=== PATIENT | female | born 1980 | race Caucasian/White ===

== ENCOUNTER 2017-08-14 13:21 | Inpatient (IN) | payer BC ==
[2017-08-14 18:58] LABS: ABS Basophils 0.2 10^3/ul (0-0.2); ABS Eosinophils 0.1 10^3/ul (0-0.6); ABS Lymphocytes 1.3 10^3/ul (1.0-4.8); ABS Monocytes 0.5 10^3/ul (0-0.8); ABS Neutrophils 4.5 10^3/ul (1.5-7.7); ABS Nucleated RBC 0 10^3/ul; Eosinophil % 1.2 % (0-6); Hematocrit 45 % (35-47); Hemoglobin 15.1 g/dl (12.0-16.0); Lymphocyte % 20.5 % (25-47); Mean Corpuscular HGB Conc 34 g/dl (31-36); Mean Corpuscular Hemoglobin 30 pg (27-31); Mean Corpuscular Volume 88 fL (80-97); Mean Platelet Volume 8 um3 (7.4-10.4); Nucleated Red Blood Cells % 0; Platelet Count 237 10^3/ul (150-450); Red Cell Distribution Width 13 % (10.5-15); White Blood Count 6.5 10^3/ul (3.5-10.8)
[2017-08-14] MEDS: Sotalol TAB* 80 MG PO SCH (19:48)
[2017-08-14] MEDS ORDERED: Acetaminophen TAB* 325 MG PO PRN (20:59)
[2017-08-14] MEDS ORDERED: Zolpidem TAB* 5 MG PO PRN (21:00)
[2017-08-15 08:55] LABS: EGFR Non-African American 99.7 (>60)
[2017-08-15] MEDS: Sotalol TAB* 80 MG PO SCH ×2 (09:03→20:42)
--- NOTE | 2017-08-15 11:44 | HP ---
HISTORY AND PHYSICAL: DATE OF ADMISSION: 08/14/17 INDICATION FOR ADMISSION: Sotalol initiation, SVT. HISTORY OF PRESENT ILLNESS: The patient is a 37-year-old female with a history of supraventricular t achycardia. The patient has been tried on Multaq and propafenone in the past with poor control. The patient is now being admitted to the hospital for sotalol initiation. The patient denies any chest pain, shortness of breath. No orthopnea or PND. She does have palpitat ions. She denies any lightheadedness, dizziness, or syncope. PAST SURGICAL HISTORY: None. OUTPATIENT MEDICATIONS: 1. Aspirin 81 mg a day. 2. Multaq 400 mg b.i.d. which she stopped 5 days ago. ALLERGIES: No known drug allergies. FAMILY HISTORY: No family history of early coronary artery disease or cardiac arrhythmias. SOCIAL HISTORY: She is . She has 2 children. She denies any tobacco or alcohol use. REVIEW OF SYSTEMS: Negative for fevers and chills. Negative for changes in bowel or bladder. Negat amando for changes in weight. Other 10-point review is unremarkable. PHYSICAL EXAMINATION VITAL SIGNS: Height is 5 feet 5 inches, weight is 127 pounds. Temperature 98.6, heart rate is 77, b lood pressure 96/69, respiratory rate is 16, oxygen saturation 100% on room air. HEENT: Sclerae anicteric. Oropharynx is pink without erythema. NECK: Carotids are 2+ without bruits. JVD is normal. Thyroid is normal. LUNGS: Clear to auscultation. CARDIAC: S1, S2, without any murmurs, rubs, or gallops. EXTREMITIES: Show no edema. She has 2+ pulses throughout. NEUROLOGIC: The patient is awake, alert, and oriented. She moves all 4 extremities equally. LABORATORY DATA: Laboratory studies are within normal limits. Magnesium is 2.3, BUN 10, creatinine 0.66. IMPRESSION AND PLAN: This is a 37-year-old female with a history of supraventricular tachycardia. I n the past, she has had ablation procedures but has failed to have good control of her supraventricul ar tachycardia. The patient is now being admitted for sotalol initiation. The patient will be start ed on 80 mg b.i.d. The patient will get daily EKGs and blood work. [id number]/[facility] #: [id number]
[2017-08-16] MEDS: Sotalol TAB* 80 MG PO SCH ×3 (08:57→20:04)
[2017-08-17 09:03] VITALS: BP 93/48
[2017-08-17 09:05] LABS: EGFR Non-African American 84.7 (>60)
[2017-08-17] MEDS: Sotalol TAB* 80 MG PO SCH (09:17)
--- NOTE | 2017-08-17 12:34 | DS ---
DATE OF ADMISSION: 08/14/2017. DATE OF DISCHARGE: 08/17/2017. DISPOSITION: To home. INDICATION FOR ADMISSION: Sotalol initiation, supraventricular tachycardia. Please see admission history and physical for details of her presentation. SUMMARY OF HOSPITAL COURSE: The patient is a 37-year-old female with a history of supraventricular tachycardia. She had been tried on Propafenone and Multaq for control over her SVT without success. The patient was admitted to the hospital for initiation of Sotalol. The patient was started on Sotalol 80 mg b.i.d. She was observed for five doses. She had no change in her QT interval. She had no significant arrhythmias. The patient tolerated the procedure well. DISPOSITION: The patient will be discharged home. DISCHARGE MEDICATION: Sotalol 80 mg b.i.d. FOLLOW-UP: I will see the patient in follow-up in two to three weeks. [id number]/[facility] #: [id number] MTDD
== END 2017-08-17 09:39 | disposition home or self-care (01) | DRG 201 ==
LOC: MEDTELE 17:18
PROVIDERS: ADMIT Specialist; ATTEND Specialist
DX: I47.1 Supraventricular tachycardia (principal); R42 Dizziness and giddiness
CPT/HCPCS: 36415; 80048; 83735; 85025; 93005; A9270-GY

== ENCOUNTER 2019-05-12 06:31 | Day surgery (SDC) | payer BC ==
[~2019-05-12 06:31] MED LIST: Buffered Lidocaine 1% SYRIN* 1 ML/SYRINGE INTRADERM ONE; Dexamethasone IV* 4 MG/ML 1 ML (4 MG) IV SLOW PU ONE; Famotidine IV* 10 MG/ML 2 ML (20 mg) IV ONE; Lactated Ringers 1000 ML Bag* 1,000 ML IV SCH
[2019-05-12] MEDS ORDERED: ceFAZolin 2 GM PREMIX in ORs 2 GM/50 ML BAG ONE (06:41)
[2019-05-12] MEDS ORDERED: Dexamethasone IV* 4 MG/ML 1 ML (4 MG) ONE (06:41)
[2019-05-12] MEDS ORDERED: Famotidine IV* 10 MG/ML 2 ML (20 mg) ONE (06:41)
[2019-05-12] MEDS ORDERED: Bupivacaine 0.25% SDV* 30 ML ONE (07:10)
[2019-05-12] MEDS ORDERED: fentaNYL* 50 MCG/ML 2 ML VIAL (100 MCG VIAL) ONE (07:13)
[2019-05-12] MEDS ORDERED: Phenylephrine 40 MCG/ML SYRINGE ONE (07:44)
[2019-05-12] MEDS ORDERED: Scopolamine 1.5 mg* PATCH TRANSDERM PRN (08:05)
[2019-05-12] MEDS ORDERED: DiMENhydriNATE IV* 50 MG/ML VIAL IV PUSH PRN (08:05)
[2019-05-12] MEDS ORDERED: Naloxone* 0.4 MG/ML 1 ML VIAL IV PRN (08:05)
[2019-05-12] MEDS ORDERED: fentaNYL* 50 MCG/ML 2 ML VIAL (100 MCG VIAL) IV PRN (08:05)
[2019-05-12] MEDS ORDERED: Ketorolac INJ* 30 MG/ML 1 ML VIAL IV PRN (08:05)
[2019-05-12] MEDS ORDERED: Ondansetron INJ* 2 MG/ML VIAL ONE (08:11)
[2019-05-12 09:28] VITALS: BP 105/75
--- NOTE | 2019-05-12 09:56 | OP ---
DATE OF OPERATION: 05/12/19 - [facility] DATE OF : 76 SURGEON: Forrest Britton MD RESIN MAKER: RICHARD Beatty. An financial sales assistant was needed for the procedure to aid in positioning of the arm and retraction. ANESTHESIOLOGIST: Dr. Orozco. ANESTHESIA: General. PRE-OP DIAGNOSIS: Right elbow cubital tunnel syndrome. POST-OP DIAGNOSIS: Right elbow cubital tunnel syndrome. OPERATIVE PROCEDURE: Right in situ cubital tunnel release with excision of anconeus epitrochlearis muscle. ESTIMATED BLOOD LOSS: 2 mL. COMPLICATIONS: None. 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 She has been treating this nonoperatively for years. We talked about risks and benefits. She wanted to proceed. FINDINGS: See above and below. DESCRIPTION OF PROCEDURE: Ms. Zavala was seen in the preoperative holding area. The correct site, side, and procedure were identified. We came back to the operating room. The arm was prepped and draped in the usual fashion and a time-out was performed. The arm was exsanguinated with the Esmarch and the tourniquet was inflated to 250 mmHg. I went ahead and made a curvilinear incision centered over the cubital tunnel. Dissection was carried down through the subcutaneous tissue bluntly to preserve any traversing branches of the medial antebrachial cutaneous nerve. An anconeus epitrochlearis muscle was identified. This was excised in its entirety. The superficial FCU fascia was released. The two ends of the FCU were split. The subfascial layer was released. I released the fascia proximally over the nerve past the arcade of [place]. At this point, everything was looking very good. Things were completely decompressed. The elbow through flexion and extension arc several times, there was absolutely no instability of the nerve. Hemostasis was obtained with Bovie cautery. Wound was irrigated out. Subcutaneous tissue was reapproximated with 3-0 Vicryl suture. Skin was closed with 3-0 Monocryl suture and Steri-Strips. A 0.25% Marcaine was infiltrated all about the operative area. Soft dressing was applied and she was taken to the recovery room in stable condition. [id number]/[facility] #: [id number] [facility]dis
== END 2019-05-12 09:25 | disposition home or self-care (01) ==
LOC: OREAST 06:31
PROVIDERS: ATTEND Orthopaedic Surgery Hand Surgery
DX: G56.21 Lesion of ulnar nerve, right upper limb (principal); M54.31 Sciatica, right side; J30.89 Other allergic rhinitis; I45.9 Conduction disorder, unspecified
CPT/HCPCS: 81025; J0690; J1100; J2405; J3010; J3490